=== PATIENT | male | born 1970 | race Hispanic/Latino ===

== ENCOUNTER 2020-08-05 20:03 | Emergency (ER) | payer MEDICARE, OTHER ==
[~2020-08-05] VITALS: Ht 172.7 cm; Wt 90.7 kg
[2020-08-05 20:18] LABS: BASOPHILS # (AUTO) 0.1 (0.0-0.1); BASOPHILS % 0.7 % (0.0-1.0); EOSINOPHILS # (AUTO) 0.2 (0.0-0.4); EOSINOPHILS % 1.8 % (0.0-6.0); HEMATOCRIT 38.2 % (38.2-49.6); HEMOGLOBIN 13.3 g/dL (14.0-18.0); LYMPHOCYTES # (AUTO) 3.2 (1.0-3.2); LYMPHOCYTES % 33.8 % (18.0-39.1); MEAN CORPUSCULAR HEMOGLOBIN 30.1 pg (28-32); MEAN CORPUSCULAR HGB CONC 34.8 g/dL (31-35); MEAN CORPUSCULAR VOLUME 86.4 fL (81-99); MONOCYTES # (AUTO) 1.2 (0.2-0.8); MONOCYTES % 12.5 % (4.4-11.3); NEUTROPHILS # (AUTO) 4.8 (2.1-6.9); PLATELET COUNT 157 x10e3/uL (140-360); RED BLOOD COUNT 4.42 x10e6/uL (4.3-5.7)
[2020-08-05 20:32] LABS: CLARITY,URINE SL CLOUDY (CLEAR); COLOR,URINE STRAW (YELLOW); KETONES,URINE TRACE (NEGATIVE); LEUKOCYTE ESTERASE ,URINE NEGATIVE (NEGATIVE); NITRITE,URINE NEGATIVE (NEGATIVE); PROTEIN,URINE DIPSTICK 1+ (NEGATIVE)
[2020-08-05 20:33] LABS: BILIRUBIN,URINE NEGATIVE (NEGATIVE); URINE UROBILINOGEN 0.2 mg/dL (0.2 - 1)
[2020-08-05 20:36] LABS: AMPHETAMINES SCREEN,URINE NEGATIVE (NEGATIVE); BENZODIAZEPINES SCREEN,URINE NEGATIVE (NEGATIVE); PHENCYCLIDINE SCREEN,URINE NEGATIVE (NEGATIVE)
[2020-08-05 20:37] LABS: ALANINE AMINOTRANSFERASE 80 IU/L (0-55); ALBUMIN 2.8 g/dL (3.5-5.0); ALBUMIN/GLOBULIN RATIO 0.7 (0.8-2.0); ALKALINE PHOSPHATASE 144 IU/L (40-150); ANION GAP 14.4 mmol/L (8-16); BLOOD UREA NITROGEN 7 mg/dL (7-26); BUN/CREATININE RATIO 7 (6-25); CALCIUM 7.7 mg/dL (8.4-10.2); CARBON DIOXIDE 24 mmol/L (22-29); CHLORIDE 105 mmol/L (98-107); CREATININE, SERUM 1.02 mg/dL (0.72-1.25); EST GLOMERULAR FILTRATION RATE > 60 ML/MIN (60-); GLUCOSE 283 mg/dL (74-118); POTASSIUM 3.4 mmol/L (3.5-5.1); SODIUM 140 mmol/L (136-145)
[2020-08-05 20:42] LABS: BACTERIA,URINE FEW /HPF; EPITHELIAL CELLS,URINE FEW /LPF
[2020-08-05 20:42] LABS: SALICYLATE < 5.0 mg/dL (0-30)
[2020-08-05] MEDS ORDERED: RISPERIDONE1 MG PO (20:42)
[2020-08-05] MEDS ORDERED: HYDROXYZINE HCL25 MG PO (20:42)
[2020-08-05] MEDS ORDERED: VENLAFAXINE HCL75 M2 PO (20:42)
[2020-08-05 20:43] LABS: AMORPHOUS SEDIMENT,URINE FEW (FEW); HYALINE CASTS 0-1 (0-1)
[2020-08-05 20:52] LABS: CREATINE KINASE MB 1.9 ng/mL (0-5.0)
[2020-08-06 03:31] LABS: CREATINE KINASE MB 1.8 ng/mL (0-5.0)
[2020-08-06] MEDS ORDERED: LORAZEPAM INJ 2 MG/ML VIAL IV PRN (07:00)
[2020-08-06] MEDS: MULTIVITAMINS- 12 INJECTION 10 ML, FOLIC ACID MDV 5 MG, THIAMINE HCL INJ 100 MG in SODI... IV ONE ×2 (07:20→11:00)
[2020-08-06] MEDS ORDERED: HYDROXYZINE HCL 25 MG TAB PO SCH (22:30)
[2020-08-06] MEDS ORDERED: RISPERIDONE 1 MG TAB PO SCH (22:30)
[2020-08-07 02:54] VITALS: BP 156/90
== END 2020-08-07 02:50 ==
LOC: ER 20:43
DX: R45.851 Suicidal ideations (principal); F25.9 Schizoaffective disorder, unspecified; F10.129 Alcohol abuse with intoxication, unspecified; I10 Essential (primary) hypertension; E11.9 Type 2 diabetes mellitus without complications; F41.9 Anxiety disorder, unspecified; K74.60 Unspecified cirrhosis of liver; F17.210 Nicotine dependence, cigarettes, uncomplicated
CPT/HCPCS: 36415; 71045; 80053; 80307; 80320; 80329 ×2; 81001; 82550; 82553; 82948; 84484; 85025; 93005; 99284 ×2; J3410; J3411; J7030